=== PATIENT | female | born 1980 | race Caucasian/White ===

== ENCOUNTER 2024-07-14 18:28 | Emergency (ER) | payer OTHER ==
[2024-07-14 18:59] VITALS: BP 118/66; PULSE 76; RESP 18; TEMP 98.1; BMI 31.1
== END 2024-07-14 20:06 | disposition home or self-care (01) ==
LOC: FER 18:28
DX: T81.31XA Disruption of external operation (surgical) wound, not elsewhere classified, initial encounter (principal); Y83.8 Other surgical procedures as the cause of abnormal reaction of the patient, or of later complication, without mention of misadventure at the time of the procedure
CPT/HCPCS: 99283-25

== ENCOUNTER 2024-08-02 13:01 | Inpatient (IN) | payer OTHER ==
[2024-08-02] MEDS ORDERED: ACETAMINOPHEN INJECTION 100 ML ONE (16:22)
[2024-08-02 16:29] LABS: BASO % 0.7 % (0-2.0); EOS % 1.6 % (0-4.5); HEMATOCRIT 30.9 % (32.4-45.2); HEMOGLOBIN 10.2 GM/dL (10.7-15.3); MCH 30.3 pg (25.7-33.7); MCHC 32.9 g/dl (32.0-36.0); MEAN CELL VOLUME 92.1 fl (80-96); MEAN PLT VOLUME 6.1 fl (7.5-11.1); MONO % 9.6 % (3.8-10.2); NEUT % 69.1 % (42.8-82.8); PLATELET COUNT 580 10^3/uL (134-434); RBC 3.35 M/mm3 (3.60-5.2); RDW 14.4 % (11.6-15.6); WHITE BLOOD COUNT 10.3 K/mm3 (4.0-10.0)
[2024-08-02] MEDS: ACETAMINOPHEN 1000 MG/100 ML BAG IVPB ONE (16:30)
[2024-08-02 16:40] LABS: INR 1.2 (0.83-1.09); PROTHROMBIN TIME (PATIENT) 13.7 SEC (9.7-13.0)
[2024-08-02] MEDS ORDERED: PIPERACILLIN/TAZOB 4.5 GM 4.5 GM/100 ML BAG IVPB ONE (16:50)
[2024-08-02] MEDS: VANCOMYCIN 1,000 MG in DEXTROSE 5%-WATER - 250 ML IVPB ONE (16:55)
[2024-08-02] MEDS: PIPERACILLIN/TAZOB 4.5 GM 4.5 GM in DEXTROSE 5%-WATER 100 ML IVPB ONE (16:55)
[2024-08-02 16:59] LABS: POTASSIUM 4.2 mmol/L (3.5-5.1)
[2024-08-02 17:03] LABS: CALCIUM 9.3 mg/dL (8.5-10.1)
[2024-08-02 17:04] LABS: BLOOD UREA NITROGEN 8.5 mg/dL (7-18)
[2024-08-02 17:07] LABS: CREATININE 0.6 mg/dL (0.55-1.3)
[2024-08-02 17:08] LABS: BILIRUBIN,TOTAL 0.3 mg/dL (0.2-1); TOT PROT 6.9 g/dl (6.4-8.2)
[2024-08-02 17:41] LABS: ERYTHROCYTE SEDIMENTATION RATE 102 mm/hr (0-20)
[2024-08-02] MEDS ORDERED: VANCOMYCIN 1 GRAM (PRE-DOCKED) 1,000 MG/250 ML BAG IVPB ONE (18:58)
[2024-08-03] MEDS ORDERED: PIPERACILLIN/TAZOB 3.375 GM 3.375 GM/50 ML BAG IVPB ONE (01:37)
[2024-08-03] MEDS: PIPERACILLIN/TAZOB 3.375 GM 3.375 GM in DEXTROSE 5%-WATER - 50 ML IVPB SCH ×2 (01:42→17:53)
[2024-08-03] MEDS ORDERED: PIPERACILLIN/TAZOB 3.375 GM 3.375 GM in DEXTROSE 5%-WATER - 50 ML IVPB SCH (02:00)
[2024-08-03] MEDS ORDERED: morphine CARPU-JECT 2 MG/1 ML DISP.SYRIN IVPUSH PRN (07:55)
[2024-08-03] MEDS ORDERED: ACETAMINOPHEN 1000 MG/100 ML BAG IVPB PRN (07:55)
[2024-08-03 08:57] LABS: BASO % 0.3 % (0-2.0); EOS % 4.5 % (0-4.5); HEMATOCRIT 29.3 % (32.4-45.2); HEMOGLOBIN 9.4 GM/dL (10.7-15.3); LYMPH % 19.7 % (8-40); MCH 29.9 pg (25.7-33.7); MEAN CELL VOLUME 93.5 fl (80-96); MEAN PLT VOLUME 6.2 fl (7.5-11.1); MONO % 10.9 % (3.8-10.2); NEUT % 64.6 % (42.8-82.8); PLATELET COUNT 548 10^3/uL (134-434); RBC 3.14 M/mm3 (3.60-5.2); RDW 14.5 % (11.6-15.6); WHITE BLOOD COUNT 8.5 K/mm3 (4.0-10.0)
[2024-08-03 09:04] LABS: INR 1.25 (0.83-1.09)
[2024-08-03 09:12] LABS: POTASSIUM 4.4 mmol/L (3.5-5.1)
[2024-08-03 09:14] LABS: CALCIUM 8.8 mg/dL (8.5-10.1)
[2024-08-03 09:15] LABS: BLOOD UREA NITROGEN 7.4 mg/dL (7-18)
[2024-08-03 09:18] LABS: CREATININE 0.6 mg/dL (0.55-1.3)
[2024-08-03] MEDS: LIDOCAINE HCL 1%, 10 MG/ML (20ML VIAL) NR ONE ×2 (09:31→11:22)
[2024-08-03] MEDS: BUPIVACAINE HCL/PF 0.25% (2.5MG/ML) 10 ML VIAL IJ ONE ×2 (09:32→11:22)
[2024-08-03] MEDS ORDERED: LIDOCAINE HCL 1%, 10 MG/ML (20ML VIAL) ONE (09:47)
[2024-08-03] MEDS ORDERED: BUPIVACAINE HCL/PF 0.25% (2.5MG/ML) 10 ML VIAL ONE (09:47)
[2024-08-03] MEDS ORDERED: ONDANSETRON 4 MG/2 ML VIAL IVPUSH PRN (10:03)
[2024-08-03] MEDS ORDERED: oxyCODONE HCL 5 MG TABLET PO PRN ×2 (10:03)
[2024-08-03] MEDS ORDERED: MIDAZOLAM HCL 2 MG/2 ML SINGLE DOSE VIAL ONE (10:20)
[2024-08-03] MEDS ORDERED: PROPOFOL 20 ML ONE ×2 (10:20→12:48)
[2024-08-03] MEDS ORDERED: ROCURONIUM BROMIDE 50 MG/5 ML SYRINGE ONE ×2 (10:20→12:49)
[2024-08-03] MEDS ORDERED: HYDROmorphone HCl 2 MG/ML VIAL ONE (10:20)
[2024-08-03] MEDS ORDERED: LIDOCAINE HCL/PF 2% SDV 5ML VIAL ONE (10:21)
[2024-08-03] MEDS ORDERED: DEXAMETHASONE SOD PHOSPHATE 4 MG/1 ML VIAL ONE (10:21)
[2024-08-03] MEDS ORDERED: PIPERACILLIN/TAZOBACTAM 3.375 GM VIAL IVPB ONE (10:22)
[2024-08-03] MEDS ORDERED: VANCOMYCIN 1,000 MG VIAL (RESTRICTED TO ID ONLY) ONE (10:38)
[2024-08-03] MEDS: PIPERACILLIN/TAZOBACTAM 2.25 GM VIAL IVPB ONE (11:08)
[2024-08-03] MEDS ORDERED: MECLIZINE HCL 25 MG TABLET (FP) ONE (11:37)
[2024-08-03] MEDS ORDERED: ACETAMINOPHEN 325 MG TABLET (FP) ONE (11:38)
[2024-08-03] MEDS ORDERED: ONDANSETRON *ODT* 4 MG TABLET ONE (11:38)
[2024-08-03] MEDS: BACITRACIN ZINC 15 GM TUBE TOPICAL OINTMENT TP ONE (13:04)
[2024-08-03] MEDS ORDERED: KETOROLAC TROMETHAMINE 30 MG/1 ML VIAL ONE (13:22)
[2024-08-03] MEDS ORDERED: ACETAMINOPHEN INJECTION 100 ML ONE (13:34)
[2024-08-03] MEDS ORDERED: GLYCOPYRROLATE 0.2 MG/1 ML VIAL ONE (13:37)
[2024-08-03] MEDS ORDERED: NEOSTIGMINE METHYLSULFATE 0.5 MG/1 ML - 10 ML MDV ONE (13:37)
[2024-08-03] MEDS: LACTATED RINGERS SOLUTION 1,000 ML IV SCH (14:00)
[2024-08-03] MEDS ORDERED: VANCOMYCIN 1,000 MG in DEXTROSE 5%-WATER - 250 ML IVPB SCH (17:00)
[2024-08-03 17:16] VITALS: RESP 18
[2024-08-03 20:05] VITALS: BMI 31.6
[2024-08-03] MEDS: VANCOMYCIN/WATER FOR INJ (PEG) 1,000 MG/200 ML BAG IVPB SCH (20:55)
[2024-08-03] MEDS: VANCOMYCIN 1,000 MG in DEXTROSE 5%-WATER - 250 ML IVPB SCH (21:02)
[2024-08-04] MEDS: LACTATED RINGERS SOLUTION 1,000 ML/1,000 ML INFUS.BAG IV SCH (01:28)
[2024-08-04] MEDS ORDERED: ACETAMINOPHEN 1000 MG/100 ML BAG IVPB PRN (07:43)
[2024-08-04] MEDS: PIPERACILLIN/TAZOB 3.375 GM 3.375 GM in DEXTROSE 5%-WATER - 50 ML IVPB SCH (09:59)
[2024-08-04] MEDS: LACTATED RINGERS SOLUTION 1,000 ML IV SCH (10:01)
[2024-08-04 10:08] VITALS: BP 106/63; PULSE 78; TEMP 97.7
[2024-08-04 10:21] LABS: HEMATOCRIT 28.3 % (32.4-45.2); HEMOGLOBIN 9.4 GM/dL (10.7-15.3); MCH 30.3 pg (25.7-33.7); MCHC 33.1 g/dl (32.0-36.0); MEAN CELL VOLUME 91.5 fl (80-96); MEAN PLT VOLUME 6.2 fl (7.5-11.1); PLATELET COUNT 550 10^3/uL (134-434); RBC 3.09 M/mm3 (3.60-5.2); RDW 14.4 % (11.6-15.6); WHITE BLOOD COUNT 10.1 K/mm3 (4.0-10.0)
[2024-08-04] MEDS: VANCOMYCIN/WATER FOR INJ (PEG) 1,000 MG/200 ML BAG IVPB SCH (10:42)
[2024-08-04] MEDS: oxyCODONE HCL 5 MG TABLET PO PRN (10:49)
[2024-08-04 11:41] LABS: POTASSIUM 3.7 mmol/L (3.5-5.1)
[2024-08-04 11:53] LABS: CALCIUM 8.9 mg/dL (8.5-10.1); PHOSPHOROUS 3.2 mg/dL (2.5-4.9)
[2024-08-04 11:54] LABS: BLOOD UREA NITROGEN 6.4 mg/dL (7-18)
[2024-08-04 11:56] LABS: CREATININE 0.7 mg/dL (0.55-1.3)
[2024-08-04] MEDS ORDERED: VANCOMYCIN 1,000 MG in DEXTROSE 5%-WATER - 250 ML IVPB SCH (17:00)
[2024-08-04] MEDS ORDERED: VANCOMYCIN 1,500 MG in DEXTROSE 5%-WATER - 250 ML IVPB SCH (17:00)
== END 2024-08-04 13:43 | disposition home health service (06) | DRG 711 ==
LOC: JER 13:01 → JERBED 20:37 → J6S 08-03 17:12
PROVIDERS: ADMIT Student in an Organized Health Care Education/Training Program; ATTEND Internal Medicine
PROC: 0W9G0ZX Drainage of Peritoneal Cavity, Open Approach, Diagnostic (ICD-10-PCS; 2024-08-03)
PROC: 0W9F0ZX Drainage of Abdominal Wall, Open Approach, Diagnostic (ICD-10-PCS; 2024-08-03)
PROC: 0JD80ZZ Extraction of Abdomen Subcutaneous Tissue and Fascia, Open Approach (ICD-10-PCS; 2024-08-03)
PROC: 0JX80ZZ Transfer Abdomen Subcutaneous Tissue and Fascia, Open Approach (ICD-10-PCS; 2024-08-03)
PROC: 0JB80ZZ Excision of Abdomen Subcutaneous Tissue and Fascia, Open Approach (ICD-10-PCS; principal; 2024-08-03 12:30)
DX: T81.42XA Infection following a procedure, deep incisional surgical site, initial encounter (principal); T81.32XA Disruption of internal operation (surgical) wound, not elsewhere classified, initial encounter; I96 Gangrene, not elsewhere classified; L03.311 Cellulitis of abdominal wall; Y83.8 Other surgical procedures as the cause of abnormal reaction of the patient, or of later complication, without mention of misadventure at the time of the procedure; Y92.9 Unspecified place or not applicable; Z98.890 Other specified postprocedural states
CPT/HCPCS: 36415; 74177-TC; 80048; 80053; 83036; 83735; 84100; 84703; 85025; 85027; 85610; 85651; 85730; 86140; 86850; 86900; 86901; 87040; 87070; 87205; 88304-TC; 93005; 93010; 94760; 99285-25; G0463-25; J0131; Q9967